=== PATIENT | female | born 1975 | race Caucasian/White ===

== ENCOUNTER → 2017-07-04 | Outpatient (CLI) | payer OTHER ==
[~2017-07-04] MED LIST: HYDR-3419 PO; NITR-5 PO; PHEN-876 PO
--- NOTE | 2017-07-05 05:46 | PAP/PSG TECHNICIAN REPORT ---
[facility] Dye Stand Loader Polysomnogram Report Study name: None Report date: 07/05/2017 Study date: 07/04/2017 Referring Physician: Antolin GARCIA M.D. Name: JEISON BRUNNER Interpreting Physician: Isaías Carey D.O. Date of : 1975 Dye Stand Loader: YONAS Pineda. Sex: Female Age: 41 StudyType: PSG Weight: 190 lbs Height: 41 years, Height 5' 3.5" Neck Circum: 13.5 inches BMI: 33.13 Medications: Escitalopram 10 mg, Lorazepam 0.5 mg, Infliximab 100 mg, Dicyclomine 10 mg, Ondansetron 4 mg, Acetaminophen 500 mg Patient History 41 yr. old female here tonight for a possible split night sleep study in room 2. Patient complains of loud snoring, witnessed apneas, nocturnal choking, non refreshing sleep, and restlessness. Patients [place] Sleepiness Scale Score is 11/24. Parameters Monitored NPSG: E1-M2, E2-M1, Fp1-M2, Fp2-M1, F3-M2, F4-M2, F4-M1, C3-M2, C4-M2, C4-M1, O1-M2, O2-M2, O2-M1, T3-M2, T4-M1, P3-M2, P4-M1, CHIN1, CHIN2, HR, EKG, Legs, PFLOW, SNOR, FLOW, CFLOW, Tidal Volume, THOR, ABDO, SpO2, PLTH, CPRESS, ETCO2 Wave, ETCO2, pH Sleep Architecture Sleep Stages Time at Lights Off 11:03:00 PM STAGES Time (min.) TST (%) Time at Lights On 5:34:00 AM Wake 38.0 -- Total Recording Time (TRT) 391.00 min. N1 32.0 9 Total Sleep Period (TSP) 377.5 min. N2 256.0 73 Total Sleep Time (TST) 352.5min. N3 22.5 6 Awake Time 38.0 min. REM 42.0 12 Wake after Sleep Onset 25.0 min. Sleep Efficiency (SE) 90 % Sleep Onset Latency (NELLY) 13.5 min. Number of Stage 1 Shifts None Awakenings 18 Stage Changes 81 Number of REM periods 4 REM 42.0 12 REM Latency 235.0 min. NREM 310.5 88 Body Position Analysis Supine Right Left Side Prone Vertical Total Sleep Time (min.) 170.7 201.5 0.0 201.51 0.0 0.0 Total Sleep Time (%) 43% 57% 0% 57 0% N/A% Total Sleep Time REM (min.) 38.0 4.0 0.0 None 0.0 0.0 Total Sleep Time NREM (min.) 113.0 197.5 0.0 None 0.0 0.0 Intermittent Wake (min.) 19.7 18.3 0.0 None 0.0 0.0 Total Sleep Period (%) 44% None None None None None Arousals Myoclonus (PLM) * Events Count Index Events Count Index Spontaneous 6 1 Events Awake (PLMW) 43 67.9 Respiratory 0 0.0 Events Asleep w/ Arousal (PLMA) 15 2.6 PLM 15 3 Events Asleep w/o Arousal (PLMS) 136 23.1 Snoring 13 2 Total Asleep 151 25.7 Total 34 6 Total 194 30 Respiratory Analysis * CA OA MA CH H RERA Total Count 0 0 0 0 11 0 11 Index 0.0 0.0 0.0 0 1.9 0 1.9 Mean Duration 0.0 0.0 0.0 0.00 23.9 0.0 23.9 Longest Duration 0.0 0.0 0.0 0.00 0.0 0.0 37.3 Respiratory Event Summary Total Supine ~Supine Right Left Prone REM NREM Apneas Count 0 0 0 0 N/A N/A 0 0 Index 0.0 0 0 0.0 N/A N/A 0 0 Hypopneas (4% Desat) Count 11 11 0 0 N/A N/A 10 1 Index 1.9 4.4 0 0.0 N/A N/A 14.3 0.2 Apneas & All Hypopneas Count 11 11 0 0 N/A N/A 10 1 Index 1.9 4 0 0 N/A N/A 14.3 0.2 Respiratory Events (Load Mixer+All Hyp+RERA) Count 11 11 0 0 N/A N/A 10 1 Index 1.9 4 0 0.0 N/A N/A 14.3 0.2 Respiratory Related Arousal Count 0 11 0 0 N/A N/A 0 0 Index 0.0 0 0 0 N/A N/A 0 0 Snoring Analysis Supine Right Left Prone REM NREM Total Snore duration 7.7 min Snores count 392 34 N/A N/A 23 403 426 Snore mean duration 1.1 Sec Snores index 156 10 N/A N/A 32.9 77.9 72.5 TST with snoring (%) 2.2% Desaturation Event Summary: Minimum %SpO2 Event Count Mean/Min/Max Duration(sec.) Desaturation Index % Time In Bed > 90 22 25.0 / 7.5 / 57.8 3.4 99.2 86 - 90 1 16.3 / 16.3 / 16.3 18.6 0.8 81 - 85 0 N/A 0.0 0.0 76 - 80 0 N/A 0.0 0.0 71 - 75 0 N/A 0.0 0.0 66 - 70 0 N/A 0.0 0.0 61 - 65 0 N/A 0.0 0.0 56 - 60 0 N/A 0.0 0.0 51 - 55 0 N/A 0.0 0.0 < 50 0 N/A 0.0 0.0 Total REM NREM Awake <50% 0.0 min. 0.0 min. 0.0 min. 0.0 min. 51 - 60% 0.0 min. 0.0 min. 0.0 min. 0.0 min. 61 - 70% 0.0 min. 0.0 min. 0.0 min. 0.0 min. 71 - 80% 0.0 min. 0.0 min. 0.0 min. 0.0 min. 81 - 90% 3.2 min. 2.6 min. 0.4 min. 0.3 min. 91 - 100% 387.1 min. 39.4 min. 310.1 min. 37.5 min. Average 93 93 93 94 Minimum SpO2 89 89 89 89 Desaturation Event Index 3.4 18.6 1.0 6.3 # Desat. Events below 89% N/A N/A N/A N/A Time(%) with Saturation below 89% 0.0 0.0 0.0 0.0 Time(min.) with Saturation below 89% 0.0 0.0 0.0 0.0 Time (mins) REM (mins) NREM (mins) % of TST SpO2 Below 90% 14 13 N1 0.3 SpO2 Below 88% 0 0 0 0 Heart Rate Analysis Min (bpm) Max (bpm) Average (bpm) Awake 56 93 73 NREM 54 94 68 REM 57 89 71 Overall 54 94 68 Supplemental O2 Values Minimum O2 level: None Value Start Time End Time Dye Stand Loader Comments MS. Brunner slept in the right, left, and supine positions. No cardiac arrhythmia or PLMs noted. No bruxism noted. Snoring was noted and scored as a 3 in the supine position and 1 in the non-supine on a scale of 0 through 5. (0=no snoring, 5=snoring loud enough to be heard through a closed door or down the parker way) MS. Brunner did not wake to use the restroom during the night. MS. Brunner stated, I was very uncomfortable. The final report will be interpreted and signed by a sleep physician. The completed physician report will then be placed in the patient medical record. Therapy (cm H2O) 0 TIB (min.) 390.5 TST (min.) 352.5 Sleep Onset (min.) 13.5 REM Onset From Sleep (min.) 235.0 Sleep Efficiency % 90 Wakefulness (%) 10 Wakefulness (min.) 38.0 NREM 1 (%) 9 NREM 1 (min.) 32.0 NREM 2 (%) 73 NREM 2 (min.) 256.0 NREM 3 (%) 6 NREM 3 (min.) 22.5 REM (%) 12 REM (min.) 42.0 # Arousals 34 Arousal Index 6 # Snore 426 Snore Index 72.5 AHI 1.9 AHI Supine 4 AHI Non-Supine 0 NREM AHI 0.2 REM AHI 14.3 RDI 1.9 # Obstructive Apnea 0 # Central Apnea 0 # Mixed Apnea 0 # Hypopneas 11 RERAs 0 Total Respiratory Events 12 Time Below SpO2 89% (min.) 0.0 Mean NREM SpO2 (%) 93 Mean REM SpO2 (%) 93 Mean Sleep SpO2 (%) 93 Min NREM SpO2 (%) 89 Min REM SpO2 (%) 89 Position Supine (min.) 170.7 Position Non-supine (min.) 201.5 LM Index Sleep 25.7 LM Index NREM 26.9 LM Index REM 17.1 Mean Heart Rate (bpm) 68 Min Heart Rate (bpm) 54
--- NOTE | 2017-07-10 08:08 | Sleep Study ---
Sleep Study Report Date of Service: 07/04/2017 Sleep Study Report Clinical data: The patient is a 41-year-old female who has a BMI of 33.13. Her symptoms include snoring, observed apneas, nocturnal choking, restless legs, and on refreshed sleep. She has an [place] sleepiness score of 11 out of a possible 24 consistent with excessive daytime somnolence. This was an in-lab overnight polysomnography. Sleep architecture: The total sleep period was 377.5 minutes. The total sleep time was 352.5 minutes. The sleep efficiency was 90 percent. Sleep latency was normal at 13.5 minutes. Wake after sleep onset was 25 minutes. The REM latency was prolonged to 235 minutes. Sleep consisted of stage N1 9 percent, stage N2 73 percent, stage N3 6 percent, stage REM 12 percent. Arousal data: The patient had a total of 34 arousals including 6 spontaneous arousals, 0 respiratory arousals, 15 PLM arousals, and 13 snoring arousals. The arousal index was 6. PLM data: The patient had a total of 151 periodic limb movements for a PLM index of 25.7. There were 15 arousals associated with the limb movements for a PLM arousal index of 2.6. EKG: The underlying cardiac rhythm was normal sinus. The cardiac rates ranged from 54 to 94 beats per minute. The average heart rate was 68 beats per minute. No cardiac arrhythmias were noted. Respiratory data: The patient had a total of 11 respiratory events, all hypopneas. Hypopneas were scored according to the 4 percent desaturation rule. The mean duration of the hypopneas was 23.9 seconds. The apnea-hypopnea index was 1.9 events per hour which is normal. This would suggest no significant sleep apnea. Oximetry data: The average saturation for the night was 93 percent. The minimum saturation was 89 percent. International Affairs Vice President comments: The patient slept on the right, left, and supine positions. No cardiac arrhythmia noted. No bruxism noted. Snoring was noted and scored as a 3 in the supine position and 1 in the nonsupine on a scale of 0 through 5. The patient did not awaken to use the restroom during the night. Impressions: 1. Periodic limb movement disorder 2. Primary snoring Comments: The patient had a normal sleep efficiency. Her sleep architecture was mildly abnormal showing decreased REM compared with normal. She does take as citalopram which can suppress REM sleep. She does take lorazepam which may contribute to daytime sleepiness. She had relatively few arousals. There was a modest number of limb movements. She gives a history of restless legs. It is not definitively clear however that the limb movements during sleep significantly disrupted the continuity of her sleep. She had no significant sleep apnea and her oxygenation was normal. Recommendations: 1. Patient has an elevated body mass index of 33.13. A weight reduction program is advised. 2. Clinical correlation is required to determine if the patient is a candidate for pharmacologic therapy for the leg movements and her complaints of restless legs. 3. It is suggested that the patient avoid sleeping in the supine position. She clearly had more snoring when she was supine. 4. The patient should be advised the appropriate principles of sleep hygiene with particular emphasis on having a regular sleep-wake schedule and allowing sufficient sleep time of approximately 7.5 hours of sleep per night. Copies To 1: Isaías Carey DO; Mary Isaac,DO
== END | disposition home or self-care (01) ==
LOC: C.NEUR 21:00
PROVIDERS: ATTEND Family Medicine
DX: G47.10 Hypersomnia, unspecified (principal); R06.83 Snoring; R06.81 Apnea, not elsewhere classified; E66.9 Obesity, unspecified